=== PATIENT | female | born 1945 ===

== ENCOUNTER 2019-04-15 05:28 | Day surgery (SDC) | payer OTHER ==
[~2019-04-15 05:28] MED LIST: CELEBREX200MG PO; FOSAMAX70 MG PO; LEVOTHYROXINE25 MCG PO; SIMVASTATIN5 MG PO
== END 2019-04-15 13:10 | disposition home or self-care (01) ==
LOC: CIR.AMB 05:28 → AMB-ENDOS 10:15 → CIR.AMB 10:15
DX: S52.532A Colles' fracture of left radius, initial encounter for closed fracture (principal)
CPT/HCPCS: 25609; 25118; 25280; C1776